=== PATIENT | male | born 1970 | race Caucasian/White ===

== ENCOUNTER 2023-06-06 15:59 | Emergency (ER) | payer OTHER, SELFPAY ==
[2023-06-06 16:05] VITALS: BP 160/85; PULSE 83; RESP 18; TEMP 36.7; O2SAT 99; BMI 23.1
--- NOTE | 2023-06-06 16:18 | DI.US.S_ITS ---
PROCEDURE: US SCROTUM INDICATIONS: RULE OUT TORSION TECHNIQUE: Real-time scanning was performed of the scrotum and testicles, with image documentation. Color and pulse Doppler interrogation was performed of both testicles. COMPARISON: None. FINDINGS: Right: Testicle is normal in size at 4.7 x 2.2 x 3.6 cm, and homogenous in echotexture. Epididymis is normal in overall size and morphology. Small hydrocele. Overlying scrotal skin is normal in thickness. Complex tubular structure with punctate internal echoes in the right scrotum measures 6 cm in length and approximately 0.6 cm in diameter. Left: Testicle is normal in size at 4.1 x 2.5 x 2.9 cm, and homogeneous in echotexture. Epididymis is normal in overall size and morphology. Small hydrocele. Overlying scrotal skin is normal in thickness. A left epididymal head cyst measures 3 x 4 x 4 mm. Echogenic focus in the left scrotum with posterior shadowing measures 5 x 3 x 6 mm. Doppler: Color and pulse Doppler demonstrate normal and symmetric arterial flow in both testicles. IMPRESSION: 1. No evidence of torsion. 2. Tubular structure in the right scrotum as detailed above. 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 Recommend referral to urology. Dictated by: Dean Dunlap M.D. on 06/06/2023 at 17:14 Approved by: Dean Dunlap M.D. on 06/06/2023 at 17:26
[2023-06-06 17:25] VITALS: BP 153/95; PULSE 81; O2SAT 98
[2023-06-06 17:30] VITALS: BP 139/88; PULSE 81; O2SAT 98
--- NOTE | 2023-06-06 17:59 | ED.MALEGU ---
HPI - Male Genitourinary <Reid Maharaj PA-C - Last Filed: 06/06/23 18:26> General Chief complaint: Urogenital-Male Stated complaint: Sent from [facility] Time Seen by Provider: 06/06/23 17:32 Source: patient Mode of arrival: Ambulatory History of Present Illness HPI Narrative: This is a 52-year-old male presents emergency department due to Left-sided testicular swelling for the last 4 days. Patient states that the pain initially began in his left inguinal groin area and radiated down to his left scrotum. States that the pain is about a 6/10. Does not change with movement. Denies any penile discharge, dysuria, hematuria, or any other concerning signs or symptoms. States he had a history of a left side inguinal hernia repair by a surgeon with the [facility] in [place]. Related Data Allergies Allergy/AdvReac Type Severity Reaction Status Date / Time No Known Drug Allergies Allergy Verified 06/06/23 15:42 Review of Systems <JELENA Betts Last Filed: 06/06/23 18:26> Review of Systems Narrative: GENERAL: Denies chills, fatigue, malaise, fever, sweats. HEENT: Denies sinus pain, ear pain, sore throat, difficulty swallowing, dizziness. RESPIRATORY: Denies dyspnea, cough, wheezing, hemoptysis, sputum. CARDIOVASCULAR: Denies chest pain, palpitations, orthopnea, edema, GASTROINTESTINAL: Denies nausea, vomiting, abdominal pain, diarrhea, constipation, melena. : Reports left-sided testicular pain Denies dysuria, frequency, incontinence, hematuria, urinary retention. MUSCULOSKELETAL: denies weakness, joint pain, or bony pain SKIN: Denies rash, skin lesions, or other NEUROLOGIC: Denies weakness, headache, numbness, change in speech, confusion, seizures, incoordination. PSYCHIATRIC: No concerning psychosocial issues. 12 point review of systems is negative except for those stated above Patient History <JELENA Betts Last Filed: 06/06/23 18:26> Social History Smoking Status: Current every day smoker Smoking Status: Current every day smoker tobacco type: cigarettes alcohol intake frequency: 0-2 drinks per day Exam <JELENA Betts Last Filed: 06/06/23 18:26> Narrative Exam Narrative: GENERAL: Well-developed patient, in mild distress. HEAD: Atraumatic. Normocephalic. EYES: Pupils equal round and reactive. Extraocular motions intact. No scleral icterus. No injection or drainage. ENT: Nose without bleeding, purulent drainage. Throat without erythema, tonsillar hypertrophy or exudate. Airway patent. NECK: Trachea midline. Non tender GASTROINTESTINAL: Abdomen soft, non-tender, nondistended. EXTREMITIES: No edema or joint tenderness. BACK: Nontender without deformity or crepitance. No flank tenderness. NEURO: AOx3. SKIN: No rash or erythema of visible areas : No significant erythema or areas of fluctuance in the groin. No penile discharge or lesions noted. Left scrotum does not appear somewhat larger than the right. No abnormal bulges noted inguinal areas. Initial Vital Signs Initial Vital Signs: Vital Signs Temperature 98.1 F 06/06/23 16:05 Pulse Rate 83 06/06/23 16:05 Respiratory Rate 18 06/06/23 16:05 Blood Pressure 160/85 H 06/06/23 16:05 Pulse Oximetry 99 06/06/23 16:05 Oxygen Delivery Method Room Air 06/06/23 16:05 <Ila Carranza DO - Last Filed: 06/07/23 07:52> Initial Vital Signs Initial Vital Signs: Vital Signs Temperature 98.1 F 06/06/23 16:05 Pulse Rate 83 06/06/23 16:05 Respiratory Rate 18 06/06/23 16:05 Blood Pressure 160/85 H 06/06/23 16:05 Pulse Oximetry 99 06/06/23 16:05 Oxygen Delivery Method Room Air 06/06/23 16:05 Course <Reid Maharaj PA-C - Last Filed: 06/06/23 18:26> Orders Ordered: ED Orders 06/06/23 16:18 US scrotum Stat Vital Signs Vital signs: Vital Signs - 8 hr 06/06/23 16:05 06/06/23 17:25 06/06/23 17:25 Temperature 98.1 F Pulse Rate 83 81 Respiratory Rate 18 Blood Pressure 160/85 H 153/95 H Pulse Oximetry 99 98 Oxygen Delivery Method Room Air <Ila Carranza DO - Last Filed: 06/07/23 07:52> Orders Ordered: ED Orders 06/06/23 16:18 US scrotum Stat Vital Signs Vital signs: Vital Signs - 8 hr 06/06/23 16:05 06/06/23 17:25 06/06/23 17:25 Temperature 98.1 F Pulse Rate 83 81 Respiratory Rate 18 Blood Pressure 160/85 H 153/95 H Pulse Oximetry 99 98 Oxygen Delivery Method Room Air MDM - Male Genitourinary <Reid Maharaj PA-C - Last Filed: 06/06/23 18:26> Imaging Data Scrotal US : Radiologist's Impression: [address] [address] Ultrasound Report Signed Patient: Wilder Villegas MR#: [id number] : 1970 Acct:[id number] Age/Sex: 52 / M Date of Service: 06/06/23 Loc: ED Accession Number: [id number] ?? Procedure: US scrotum Ordering Provider: Ila Carranza D.O. PROCEDURE:? US SCROTUM ? INDICATIONS:? RULE OUT TORSION ? TECHNIQUE:? Real-time scanning was performed of the scrotum and testicles, with image documentation.? Color and pulse Doppler interrogation was performed of both testicles.? ? COMPARISON:? None. ? FINDINGS:? ? Right:? Testicle is normal in size at 4.7 x 2.2 x 3.6 cm, and homogenous in echotexture.? Epididymis is normal in overall size and morphology.? Small hydrocele.? Overlying scrotal skin is normal in thickness.? Complex tubular structure with punctate internal echoes in the right scrotum measures 6 cm in length and approximately 0.6 cm in diameter. ? Left:? Testicle is normal in size at 4.1 x 2.5 x 2.9 cm, and homogeneous in echotexture.? Epididymis is normal in overall size and morphology.? Small hydrocele.? Overlying scrotal skin is normal in thickness.? A left epididymal head cyst measures 3 x 4 x 4 mm.? Echogenic focus in the left scrotum with posterior shadowing measures 5 x 3 x 6 mm. ? Doppler:? Color and pulse Doppler demonstrate normal and symmetric arterial flow in both testicles.? ? IMPRESSION:? 1. No evidence of torsion. 2. Tubular structure in the right scrotum as detailed above.? 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 Recommend referral to urology.? ? Dictated by: Dean Dunlap M.D. on 06/06/2023 at 17:14 ? ? Approved by: Dean Dunlap M.D. on 06/06/2023 at 17:26 ? MDM Narrative Medical decision making narrative: MDM * differential diagnosis includes but not limited to varicocele, hydrocele, epididymal cyst, testicular torsion * Prior records reviewed: Patient has not been here for similar complaints in the past * My lab interpretation: None * My imgaing interpretation: Scrotal ultrasound negative for his testicular torsion but did know a tubular structure in the right scrotum measuring 6 cm in length. There was also noted to be a left-sided hydrocele as well as epididymal cyst which may be causing some of the patient's discomfort. * Clinical Decision Rules/Scores evaluated: None * Independent discussions with: None ED Course: This is a 52-year-old male presents to the emergency department due to scrotal pain for the last 4 days. Scrotal ultrasound was negative but did show a tubular structure of the right scrotum for which a urology referral was placed. Ultrasound negative for testicular torsion. He would not describe any UTI or STD symptoms in the were no rashes or lesions noted on exam. Patient will follow up Urology as well as the general surgeon who performed his hernia repair last year. Shared Decision Making: Discussed plan with patient who is comfortable with the plan Social Considerations: None Disposition: Discharged to home Discharge Plan Departure Patient Disposition: Home Clinical Impression: Pain in testicle Activity Restrictions/Additional Instructions: Thank you for coming to the [facility] Emergency Department today. As we discussed there is no evidence of any kind of testicular torsion like I described to but the ultrasound did show a ?tubular structure? affecting your right scrotum that we would like to follow up on. Please call the Urology Clinic who is information is attached on Friday to arrange for an appointment. Also recommend you follow-up with the surgeon who performed your hernia repair as well. Please use ibuprofen as needed for the pain. I hope you feel better soon. Referrals: Miscellaneous,[facility] [Primary Care Provider] - Edwar Rodas MD [Physician] - (Follow up on right-sided tubular structure found on ultrasound.) Stand Alone Forms: Patient Portal/API <Ila Carranza DO - Last Filed: 06/07/23 07:52> Cosign ED Attending Cosignature Attestation: I was immediately available in the department for consultation. Documentation has been reviewed.
[2023-06-06 18:00] VITALS: O2SAT 97
[2023-06-06 18:01] VITALS: BP 137/79; PULSE 86; O2SAT 98
== END 2023-06-06 18:37 | disposition home or self-care (01) ==
PROVIDERS: Emergency Provider Physician Assistant Medical
DX: N50.812 Left testicular pain (principal)
CPT/HCPCS: 76870; 99281; 99283

== ENCOUNTER → 2023-06-10 10:55 | Outpatient (CLI) | payer OTHER, SELFPAY | PROVIDERS: PCP Internal Medicine; Visit Provider Specialist | DX: N50.819 Testicular pain, unspecified (principal) | CPT/HCPCS: 87086 ==

== ENCOUNTER → 2023-06-10 12:06 | Outpatient (CLI) | payer OTHER, SELFPAY ==
--- NOTE | 2023-06-10 12:07 | DI.US.S_ITS ---
PROCEDURE: US SCROTUM INDICATIONS: LEFT SCROTAL PAIN TECHNIQUE: Real-time scanning was performed of the scrotum and testicles, with image documentation. Color and pulse Doppler interrogation was performed of both testicles. COMPARISON: [facility], , US SCROTUM, 06/06/2023, 16:49. FINDINGS: Right: Right testicle measures 4.7 x 2.2 x 3.3 cm. Echotexture is homogeneous. No varicocele or hydrocele. Normal scrotal wall thickness. Epididymal echotexture is mildly heterogeneous. Vascularity within normal limits. Epididymal cyst measuring 5 mm. Small calcifications are present. Paratesticular tubular structure again seen. Left: Left testicle measures 4.2 x 3.2 x 3.1 cm. Echotexture is homogeneous. Vascularity is slightly increased. Septated moderate hydrocele is present. Mild scrotal wall thickening. No varicocele. Epididymal thickness is increased compared to the contralateral side. There are multiple small cysts. Left scrotal stacey also present. Doppler: Color and pulse Doppler demonstrate patent arterial flow. IMPRESSION: No evidence of torsion. Suspected left epididymo-orchitis. Moderate septated hydrocele on the left. There is also scrotal wall thickening. Right paratesticular tubular structure again seen, described on previous ultrasound. Dictated by: Alfred Bhakta M.D. on 06/10/2023 at 13:19 Approved by: Alfred Bhakta M.D. on 06/10/2023 at 13:24
== END ==
PROVIDERS: PCP Internal Medicine; Referring Provider Specialist; Visit Provider Specialist
DX: N50.812 Left testicular pain (principal); R31.29 Other microscopic hematuria; N43.3 Hydrocele, unspecified; N50.3 Cyst of epididymis; N45.1 Epididymitis; N50.9 Disorder of male genital organs, unspecified
CPT/HCPCS: 76870; 81002; 87086

== ENCOUNTER → 2023-06-19 06:43 | Outpatient (CLI) | payer OTHER, SELFPAY ==
--- NOTE | 2023-06-19 06:44 | DI.US.S_ITS ---
PROCEDURE: US SCROTUM INDICATIONS: PAIN IN LEFT TESTICLE TECHNIQUE: Real-time scanning was performed of the scrotum and testicles, with image documentation. Color and pulse Doppler interrogation was performed of both testicles. COMPARISON: [facility], , US SCROTUM, 06/10/2023, 12:22. FINDINGS: Right: Testicle is normal in size at 4.7 x 2.4 x 3.4 cm, and homogenous in echotexture. Epididymal echotexture is mildly heterogeneous with increased vascularity. Small calcifications are noted in right epididymis unchanged from prior study. Tubular structures are again seen adjacent to right testes unchanged from prior study. No hydrocele or varicoceles. Overlying scrotal skin is normal in thickness. Left: Testicle is normal in size at 3.7 x 2.8 x 3.3 cm, and homogeneous in echotexture. Multiple left epididymal cysts are seen measures up to 5 x 3 x 4 mm in size. 2 scrotal pearls are noted in left scrotum measures 3 and 4 mm in size unchanged from prior study. Left epididymal calcification measures 2 x 1 x 2 mm in size is also seen. A moderate size left-sided hydrocele is seen containing internal septations. Doppler: Color and pulse Doppler demonstrate increased vascularity in left testes. Normal arterial and venous flow is seen in right testes. IMPRESSION: 1. Increased left testicular vascularity concerning left-sided orchitis. No testicular torsion. Normal appearing right testes. Moderate septated left hydrocele. 2. Mildly heterogeneous right epididymal echotexture which may represent mild epididymitis. 3. Few calcifications are noted in bilateral epididymi and in left scrotum not significantly changed from prior study. Stable appearing right paratesticular tubular structure. Dictated by: Raciel Jones M.D. on 06/19/2023 at 8:30 Approved by: Raciel Jones M.D. on 06/19/2023 at 9:18
--- NOTE | 2023-06-19 09:48 | DI.CT.S_ITS ---
PROCEDURE: CT ABDOMEN PELVIS WO/W CON INDICATIONS: left lower quadrant pain TECHNIQUE: Optional 5 mm thick noncontrast images acquired from the diaphragm to the symphysis pubis. After the administration of intravenous contrast, 5 mm thick images acquired from the diaphragm to the symphysis pubis after a 10-minute delay. 2 mm thick coronal and sagittal reformats were then performed of the kidneys and ureters. For radiation dose reduction, the following was used: automated exposure control, adjustment of mA and/or kV according to patient size. COMPARISON: [facility], , US SCROTUM, 06/19/2023, 6:53. FINDINGS: Image quality: Excellent. Lung bases: Lung bases are clear. Heart size is normal. Urinary system: Both kidneys are normal in size, without hydronephrosis or nephrolithiasis on pre-contrast images. 2.7 cm exophytic left renal low-attenuation mass, Hounsfield units measure 13. There is a superior right renal pole exophytic low-attenuation 4.7 cm mass Hounsfield units measuring 1.0. There are several punctate areas marked decreased low-attenuation within the mass. No perinephric fat stranding. There is normal bilateral renal enhancement. Renal calyces appear normal in morphology when filled with contrast. Opacified portions of both ureters demonstrate normal caliber. Bladder wall thickness is normal. No calcified bladder stones. Other solid organs: Liver is normal in size and enhancement. Gallbladder is unremarkable . Biliary system is non dilated. Pancreas enhances normally. Spleen is normal in size and enhancement. No adrenal nodules. Peritoneum and bowel: Bowel loops demonstrate normal wall thickness and caliber. No free fluid or air. Mild hiatal hernia. Nodes and vessels: No retroperitoneal or mesenteric adenopathy by size criteria. Aorta and inferior vena cava are normal in size. Abdominal wall: Fat containing ventral hernia. Pelvis: No pathologic free pelvic fluid. No inguinal hernias or adenopathy. Bones: No suspicious bony lesions. No vertebral body compression fractures. IMPRESSION: No visualized cause of left lower quadrant pain. Simple left renal cyst. Low-attenuation mass within the right kidney with Hounsfield units measuring 1. As previously identified, there are several punctate areas of more decreased low attenuation within the mass reason suspicious for fat component, which would indicate angiomyolipoma. Dictated by: Francisca Mark M.D. on 06/19/2023 at 10:40 Approved by: Francisca Mark M.D. on 06/19/2023 at 10:45
== END ==
PROVIDERS: PCP Internal Medicine; Referring Provider Specialist; Visit Provider Specialist
DX: N50.812 Left testicular pain (principal); R10.32 Left lower quadrant pain; K43.9 Ventral hernia without obstruction or gangrene; N43.3 Hydrocele, unspecified; N28.89 Other specified disorders of kidney and ureter; N28.1 Cyst of kidney, acquired
CPT/HCPCS: 74178; 76870; Q9967